=== PATIENT | female | born 1960 | race Caucasian/White ===

== ENCOUNTER → 2018-12-18 | Outpatient (CLI) | payer OTHER | LOC: M.LAB 05:18 | DX: E87.6 Hypokalemia (principal) ==

== ENCOUNTER → 2019-03-19 | Outpatient (CLI) | payer OTHER ==
[~2019-03-19] MED LIST: CALCIUM CARBON600 MG PO; CRANBERRY450 M1 PO; CYMBALTA60 MG PO; DICLOFENAC SOD50 M1 PO; DIVIGEL1 EAC1 TOP; FLEXERIL PO; GLUCOSAMINE CO1 EACH PO; LOPRESSOR50 MG PO; NORVASC5 M1 PO; NORVASC5 MG PO; OMEGA DHA92 MG PO; OMEPRAZOLE40 MG PO; PERCOCET 5-3251 EACH PO; SULFASALAZINE500 M4 PO; TRIAMTERENE/HCT1 CA1 PO; VITAMIN E1000 UNIT PO; ZONEGRAN100 MG PO
== END ==
LOC: M.MRI 06:52
DX: M17.12 Unilateral primary osteoarthritis, left knee (principal); S83.282A Other tear of lateral meniscus, current injury, left knee, initial encounter; M71.22 Synovial cyst of popliteal space [Baker], left knee; X58.XXXA Exposure to other specified factors, initial encounter; Y93.89 Activity, other specified; Y92.89 Other specified places as the place of occurrence of the external cause; Y99.8 Other external cause status

== ENCOUNTER 2019-04-15 08:28 | Inpatient (IN) | payer OTHER ==
[2019-04-02 07:24] LABS: HEMATOCRIT 40.1 % (37.0-47.0); HEMOGLOBIN 13.8 gm/dL (12.0-15.0); MCH 33.2 pg (26.0-34.0); MCHC 34.4 g/dL (28.0-37.0); MCV 96.4 fL (80.0-100.0); RBC 4.15 mil/uL (4.20-5.00); RDW-CV 12.7 % (10.5-14.5); WBC 4.8 thou/uL (4.0-11.0)
[2019-04-02 07:27] LABS: URINE BILIRUBIN NEGATIVE (Negative); URINE BLOOD NEGATIVE (Negative); URINE CLARITY CLEAR; URINE COLOR YELLOW; URINE GLUCOSE-RANDOM NEGATIVE (Negative); URINE KETONES NEGATIVE (Negative); URINE LEUKOCYTES-REFLEX NEGATIVE (Negative); URINE NITRITE-REFLEX NEGATIVE (Negative); URINE PROTEIN NEGATIVE (Negative); URINE UROBILINOGEN 0.2 E.U./dl (0.2-1.0)
[2019-04-02 07:32] LABS: PROTIME 10.6 Seconds (9.20-11.50)
[2019-04-02 07:37] LABS: ALBUMIN 4.2 g/dL (3.4-5.0); CALCIUM 9.2 mg/dL (8.5-10.1); CREATININE 0.9 mg/dL (0.6-1.3); POTASSIUM 3.6 mmol/L (3.5-5.1); TOTAL BILIRUBIN 0.3 mg/dL (<0.1-1.0); TOTAL PROTEIN 7.3 g/dL (6.4-8.2)
[~2019-04-15] VITALS: Ht 160 cm; Wt 90.7 kg
[~2019-04-15 08:28] MED LIST changes: -PERCOCET 5-3251 EACH PO
[2019-04-15 15:24] VITALS: BP 131/69
[2019-04-15 15:50] VITALS: BP 130/87
--- NOTE | 2019-04-15 18:32 | NUR ---
PT A&Ox4. VITALS STABLE. DRESSING C/D/I. RIGHT TEDs, ADAM WRAP, FOOT PUMPS, POLAR PACK AND CAPNO IN PLACE WITH 3L02. IV PATENT, INFUSING. PAIN CONTROLLED WITH NORCO. DENIED N/V. TOELRATING DIET. HAS NOT GOT UP DURING SHIFT. STARTING CPM. FALL PRECAUTIONS IN PLACE. CALL LIGHT WITHIN REACH. WILL CONTINUE TO MONITOR.
[2019-04-15 19:38] VITALS: BP 144/73
[2019-04-16] VITALS: BP 111/61
[2019-04-16 04:00] VITALS: BP 107/78
[2019-04-16 05:25] LABS: HEMATOCRIT 30.9 % (37.0-47.0); HEMOGLOBIN 10.6 gm/dL (12.0-15.0)
--- NOTE | 2019-04-16 07:32 | NUR ---
ASSUMED CARE OF PT 04/15/19 AT APPROX 1930, PT A&OX4 THROUGHOUT SHIFT, VSS, PAIN MEDS REQUESTED AND GIVEN ORDERED, PT PARTICIPATED IN CPM THERAPY, ASSESSMENTS AND HOURLY ROUNDINGS COMPLETED, REPORT GIVEN AND CARE OF PT TRANSFERED TO ZOYA GARDNER 04/16/19 AT APPROX 0720.
[2019-04-16 08:20] VITALS: BP 114/63
--- NOTE | 2019-04-16 09:42 | NUR ---
RECIEVED O.T. EVAL AND TX ORDER. WILL DEFER TO P.T. AT THIS TIME. PLEASE ORDER FURTHER O.T. SERVICES IF NEEDED.
[2019-04-16 11:16] VITALS: BP 114/63
[2019-04-16] MEDS ORDERED: PERCOCET 5-3251 EACH PO (12:03)
--- NOTE | 2019-04-16 13:15 | NUR ---
PT DISCHARGED AT 1308 BY WHEELCHAIR TO HOME WITH HOME HEALTH WITH NURSING STAFF AND . PAPER SCRIPTS AND CARE NOTES GIVEN. IV OUT. DRESSING C/D/I. CPM, POLARPACK AND TEDS SENT WITH PT. WALKER AT HOME. PT STABLE UPON DISCHARGE
--- NOTE | 2019-04-16 13:30 | NUR ---
CM DID NOT GET TO SEE PT.PRIOR TO DISCHARGE SHE WAS IN A HURRY TO LEAVE. CM HAD CALLED IN HER PRESCRIPTION WRITTEN FOR BARIRELTO TO HER PHARMACY. NURSING TO CALL AND CHECK COPAY. PT.CHOSE [facility]. FAXED REFERRAL TO [facility], ALONG WITH ORDERS. [facility] CONFIRMED RECEIVING ORDERS. PT.HAS A FRONT WHEEL WALKER AT HOME. JOCE WILL BE WITH HER PER NURSING.
--- NOTE | 2019-04-22 10:47 | OP ---
[facility] [address] [place] [address] OPERATIVE REPORT Name: ARDEN PATRICIA Room: [address] IN [facility]#: [id number] Admission: 04/15/19 Attend Phys: Elizabeth Nguyen Discharge: 04/16/19 Date of : 58 Report #: [id number] THIS REPORT FOR: //name// CC: RAJESH Rosas DATE OF SERVICE: 04/15/2019 PREOPERATIVE DIAGNOSIS: Left knee osteoarthritis. POSTOPERATIVE DIAGNOSIS: Left knee osteoarthritis. PROCEDURE: Left total knee arthroplasty. SURGEON: Chandan Cain II, DO DEPARTMENT MANAGER: JOSH Jason ANESTHESIA: General endotracheal. ESTIMATED BLOOD LOSS: 50 mL. ANTIBIOTICS: Ancef preoperatively. DRAINS: Medium Hemovac. COMPLICATIONS: None. CONDITION OF THE PATIENT: Stable to recovery room. IMPLANTS: Listed in operative record and progress note. BRIEF HISTORY: The patient was seen in the preoperative area. Preoperative H and P was performed. Site was marked. Questions were answered. Risks and benefits were discussed with the patient in detail about surgery. The patient wished to proceed, assuming all risks. DESCRIPTION OF PROCEDURE: The patient was taken to the operative suite and placed supine on the operative table, given appropriate anesthesia. A well-padded tourniquet applied to upper thigh, which was inflated to 300 mmHg after gravity exsanguination. The operative knee was sterilely prepped and draped. Surgery began by midline incision. This was carried down to the subcutaneous tissues. A medial parapatellar arthrotomy was performed and carried down to bone. Patella was then everted and excess soft tissue was removed from around the femur. Femoral cutting block was then applied, checked [place] [id number] OPERATIVE REPORT Name: ARDEN PATRICIA Room: [address]#: [id number] Admission: 04/15/19 Attend Phys: Elizabeth Nguyen Discharge: 04/16/19 Date of : 58 Report #: [id number] with a drop connie for rotational alignment, pinned into appropriate position and appropriate cuts were made. A 4-in-1 cutting block was then applied, checked for rotational alignment, pinned in appropriate position and appropriate cuts were made. The tibia was exposed. Excess meniscus was removed. Retractor was placed on collateral ligaments. The tibial cutting block was then applied, pinned in appropriate position, checked with drop connie for rotational alignment and slope and appropriate cut was made. Tibial bone was removed. The tibial base plate was then applied, checked for rotational alignment with the drop connie and pinned in appropriate position. The femur was then applied and box cut was reamed. This was then trialed with appropriate spacer, which showed excellent fit and fill and excellent stability of the knee through all range of motion. The patella was reamed in appropriate fashion and sized to appropriate size. Three peg holes were drilled and it was then trialed and showed excellent flexion, extension, excellent tracking of the patella within the groove. These trials were then removed. The tibia was punched in appropriate fashion. Bone ends were cleansed with Pulsavac irrigation and the cement was mixed and applied to final implants. These were then malleted into position and held with knee in extension and compressed to allow cement to cure. After it cured, excess was removed using Emma and osteotome. Wound was then copiously irrigated and the final spacer was then malleted into position. Tourniquet was deflated. Hemostasis was maintained with electrocautery. Pain cocktail was injected. PRP gel sprayed throughout internal aspects of the knee. Medium Hemovac drain was applied. Capsule was closed with #2 FiberWire and #1 Vicryl in [id number] fashion. The skin was closed with 2-0 Vicryl and running 3-0 Monocryl. Dermabond and sterile dressing applied. [place] wrap and PolarCare applied. The patient transported to recovery room in stable condition. Counts were correct throughout the procedure. <ELECTRONICALLY SIGNED> By: Chandan Cain II, DO 04/22/19 [id number] Cain II, DO /nt
== END 2019-04-16 13:08 | disposition home health service (06) | DRG 470 ==
LOC: M.TBA 08:28 → M.ORTHSURG 08:28 → M.PRE 10:17 → M.ORTHSURG 14:51 → M.PRE 15:14 → M.ORTHSURG 04-16 13:08
PROVIDERS: Orthopaedic Surgery; ADMIT Internal Medicine
PROC: 0SRD0J9 Replacement of Left Knee Joint with Synthetic Substitute, Cemented, Open Approach (ICD-10-PCS; principal; 2019-04-15)
DX: M17.12 Unilateral primary osteoarthritis, left knee (principal); D62 Acute posthemorrhagic anemia; Z96.651 Presence of right artificial knee joint; Z90.710 Acquired absence of both cervix and uterus; I10 Essential (primary) hypertension; G40.909 Epilepsy, unspecified, not intractable, without status epilepticus; M45.9 Ankylosing spondylitis of unspecified sites in spine

== ENCOUNTER 2021-02-13 11:39 | Emergency (ER) | payer OTHER ==
[~2021-02-13] VITALS: Ht 162.6 cm; Wt 83.9 kg
[~2021-02-13 11:39] MED LIST changes: +PERCOCET 5-3251 EACH PO
[2021-02-13] MEDS ORDERED: IMVEXXY4 MCG IM (11:55)
[2021-02-13 12:24] LABS: ABSOLUTE LYMPHOCYTES 1.1 thou/uL (0.8-5.3); ABSOLUTE MONOCYTES 0.6 thou/uL (0.0-1.2); ABSOLUTE NEUTROPHILS 1.2 thou/uL (1.6-8.1); BASOPHILS 1.2 %; EOSINOPHILS 0.2 %; HEMOGLOBIN 13.1 gm/dL (12.0-15.0); LYMPHOCYTES 38.5 %; MCH 31.1 pg (26.0-34.0); MCHC 33.7 g/dL (28.0-37.0); MCV 92.3 fL (80.0-100.0); MONOCYTES 19.6 %; MPV 8.4 fl. (7.2-11.1); NUCLEATED RBCS 0 /100WBC; PLATELET COUNT* 187 thou/uL (150-400); POLYS 40.5 %; RBC 4.22 mil/uL (4.20-5.00); RDW-CV 13.2 % (10.5-14.5); WBC 2.9 thou/uL (4.0-11.0)
[2021-02-13 12:37] LABS: CALCIUM 9.1 mg/dL (8.5-10.1); CREATININE 0.9 mg/dL (0.6-1.3); POTASSIUM 3.9 mmol/L (3.5-5.1)
[2021-02-13 12:41] LABS: ALBUMIN 3.6 g/dL (3.4-5.0); TOTAL BILIRUBIN 0.2 mg/dL (<0.1-1.0); TOTAL PROTEIN 7.3 g/dL (6.4-8.2); URIC ACID* 4.5 mg/dL (2.6-7.2)
[2021-02-13 13:28] LABS: ESR (SEDRATE) 18 mm/hr (0-30)
[2021-02-13] MEDS ORDERED: MEDROLDOSEPACK PO (13:53)
[2021-02-13 14:09] VITALS: BP 111/70
== END 2021-02-13 14:10 | disposition home or self-care (01) ==
LOC: M.ERS 11:39
PROVIDERS: Nurse Practitioner Family
DX: M25.532 Pain in left wrist (principal); R74.8 Abnormal levels of other serum enzymes; I10 Essential (primary) hypertension; M19.90 Unspecified osteoarthritis, unspecified site; Z79.899 Other long term (current) drug therapy